=== PATIENT | male | born 1945 | race Caucasian/White ===

== ENCOUNTER 2018-01-31 17:43 | Observation (INO) | payer MEDICARE, MEDICAID ==
[2018-01-31 18:44] LABS: #Eosinphils 0.1 thou/uL (0.0-0.7); #Lymphocytes 1.3 thou/uL (1.20-3.40); #Monocytes 0.7 thou/uL (0.11-0.59); #Neutrophils 4.9 thou/uL (1.40-6.50); %Basophils 0.4 % (0.0-1.0); %Eosinophils 1.4 % (0.0-10.0); %Monocytes 10.4 % (0.0-10.0); %Neutrophils 69.7 % (42.0-75.0); Mean Corpuscular HGB CONC 32.6 g/dL (32.0-36.0); Mean Corpuscular Hemoglobin 30.7 pg (27.0-31.0); Mean Platelet Volume 9.1 fL (7.4-10.4); Platelet Count 186 thou/uL (130-400); RBC Distribution Width 15.6 % (11.5-14.5); Red Blood Cell (RBC) Count 3.58 mill/uL (4.70-6.10)
[2018-01-31 19:07] LABS: ALT (SGPT) 17 U/L (8-55); AST (SGOT) 21 U/L (5-34); Albumin 3.9 g/dL (3.4-4.8); Alkaline Phosphatase 160 U/L (40-150); Anion Gap 11 mmol/L (10-20); BUN (Urea Nitrogen) 25 mg/dL (8.4-25.7); Bilirubin, Total 0.5 mg/dL (0.2-1.2); CK (CPK) 32 U/L (30-200); Calc. Creatinine Clearance 0 mL/min (70-130); Calcium 9.6 mg/dL (7.8-10.44); Carbon Dioxide 32 mmol/L (23-31); Chloride 98 mmol/L (98-107); Estimated GFR-MDRD Greater than 90; Globulin 3.4 g/dL (2.4-3.5); Glucose 104 mg/dL (83-110); Lipase 66 U/L (8-78); Magnesium 1.5 mg/dL (1.6-2.6); Potassium 4.3 mmol/L (3.5-5.1); Protein, Total 7.3 g/dL (5.8-8.1); Sodium 137 mmol/L (136-145)
[2018-01-31 19:10] LABS: CKMB 1.4 ng/mL (0-6.6); Troponin I 0.048 ng/mL (< 0.028)
--- NOTE | 2018-01-31 19:22 | RAD ---
CHEST ONE VIEW: 01/31/18 HISTORY: Chest pain. FINDINGS: No comparison. The cardiac silhouette is magnified and enlarged. Pulmonary vasculature unremarkable. Mediastinum mid line with postoperative changes, aortic calcification, and a dual lead right subclavian cardiac elect ronic device. Right hemidiaphragm slightly elevated. No lobar consolidation or evidence of pneumothor ax. IMPRESSION: Cardiomegaly. No evidence of pulmonary edema. Atherosclerosis. POS: [facility]
--- NOTE | 2018-01-31 19:45 | CT ---
CT HEAD NONCONTRAST: 01/31/18 HISTORY: Altered mental status. FINDINGS: No comparison. There is no evidence of acute intracranial hemorrhage or infarct. Large area of enceph alomalacia involves the left frontal and temporal lobes in the distribution of the middle cerebral ar wilmar. No mass effect or shift of midline structures. Diffuse cortical atrophy. Visualized paranasal s inuses remain well aerated. IMPRESSION: Old left MCA infarct. No acute intracranial abnormalities are demonstrated. POS: [facility]
[2018-01-31] MEDS ORDERED: Acetaminophen 325 MG/10.15 ML UDCUP ONE (19:50)
--- NOTE | 2018-01-31 20:36 | CT ---
CT ARTERIOGRAM CHEST WITH IV CONTRAST AND 3D MIP IMAGIN01/31/18 HISTORY: Chest pain. FINDINGS: There is good contrast opacification of the pulmonary arteries and thoracic aorta with normal branchi ng of the great vessels. Prominent arterial calcification. Small amount of left pleural fluid. Emphys ematous changes at each lung apex. Degenerative changes throughout the spine. Elevation of the right hemidiaphragm without apparent cause. IMPRESSION: No CT evidence of pulmonary embolus. Atherosclerosis. Small left pleural effusion. COPD. POS: [facility]
[2018-01-31 22:19] LABS: Bilirubin Negative (Negative); Blood, Urine Negative (Negative); Clarity CLEAR (Clear); Glucose, Urine (Dipstick) Negative (Negative); Leukocyte Small (Negative); Nitrite Negative (Negative); Protein, Urine (Dipstick) Negative (Neg-Trace); Specific Gravity, Urine 1.016 (1.002-1.036); pH, Urine 6.5 (5.0-9.0)
[2018-01-31 22:21] LABS: Bacteria/HPF None Seen HPF (None Seen); Hyaline Casts/LPF 0-3 HYALINE CAST LPF (0-3 Hyaline); RBC/HPF 0-3 HPF (0-3); Squamous Epithelial 0-3 HPF (0-3); WBC/HPF 0-3 HPF (0-3)
[2018-01-31 22:23] LABS: Troponin I 0.056 ng/mL (< 0.028)
[2018-02-01] MEDS ORDERED: Sodium Chloride 0.45% 1,000 ML IV SCH (01:00)
[2018-02-01 02:53] VITALS: BMI 25.0
[2018-02-01 03:50] LABS: Troponin I 0.065 ng/mL (< 0.028)
[2018-02-01] MEDS ORDERED: Nitroglycerin 0.4 MG TAB (25 Tab Bottle) PO PRN (06:49)
[2018-02-01] MEDS ORDERED: Acetaminophen 325 MG TAB PO PRN (06:49)
[2018-02-01] MEDS ORDERED: Dextrose 5% in Water 1,000 ML IV PRN (06:54)
[2018-02-01] MEDS ORDERED: Dextrose 50% Abboject 50 ML SYRINGE SLOW IVP PRN (06:54)
[2018-02-01] MEDS ORDERED: Temazepam 15 MG CAP PO PRN (07:10)
[2018-02-01] MEDS ORDERED: Loratadine 10 MG TAB PO PRN (07:10)
[2018-02-01] MEDS ORDERED: Senokot S 8.6-50 MG TAB PO PRN (07:10)
[2018-02-01] MEDS ORDERED: Bisacodyl 5 MG TAB PO PRN (07:10)
[2018-02-01] MEDS ORDERED: Eucerin (Mineral Oil/Petrolatum,White) 30 gm Jar TOP PRN (07:10)
[2018-02-01] MEDS ORDERED: HYDROcodone/Acetaminophen 5/325 mg Tablet PO PRN (07:10)
[2018-02-01] MEDS ORDERED: Diabetic Tussin 200 MG/10 ML UDCUP PO PRN (07:10)
[2018-02-01] MEDS ORDERED: Ondansetron HCl/PF 4 MG/2 ML Vial IVP PRN (07:10)
[2018-02-01] MEDS ORDERED: hydrALAZINE 20 MG/ML VIAL SLOW IVP PRN (07:10)
[2018-02-01] MEDS ORDERED: Sodium Chloride 0.65% Nasal 44 ML BOT EA NARE PRN (07:10)
[2018-02-01] MEDS ORDERED: Calcium Carbonate 500 MG ChewTAB PO PRN (07:10)
[2018-02-01] MEDS ORDERED: Artificial Tears 18 DROP/0.9 ML EA EYE PRN (07:10)
[2018-02-01] MEDS ORDERED: Ondansetron ODT 4 MG TAB PO PRN (07:10)
[2018-02-01] MEDS ORDERED: diphenhydrAMINE 25 MG CAP PO PRN (07:28)
[2018-02-01] MEDS ORDERED: Magnesium Sulfate 3 GM in Sodium Chloride 0.9% 100 ML IVPB SCH (07:30)
--- NOTE | 2018-02-01 07:47 | HP ---
CHIEF COMPLAINT: Chest pain. HISTORY OF PRESENT ILLNESS: This is a 72-year-old male with past medical history of hyperkalemia, CVA, diabetes mellitus type 2, heart failure, hypertension, hyperlipidemia, MD, presenting with chest pain. Per the family, the patient was pointing to his chest because the patient is nonverbal and due to the patient points to the chest, patient was sent to be evaluated for possible heart attack. REVIEW OF SYSTEMS: Positive for chest pain, otherwise as documented in HPI. All other systems were reviewed and are negative. PAST MEDICAL HISTORY: Hyperkalemia, aphasia, atrial fibrillation, hyperlipidemia, hypertension, hemiplegia, heart failure, diabetes mellitus type 2, CVA with right-sided deficits. PAST SURGICAL HISTORY: Pacemaker. FAMILY HISTORY: Reviewed and noncontributory to this visit. PSYCHIATRIC HISTORY: Depression. SOCIAL HISTORY: Denies alcohol use, denies any drug use. Denies any smoking history. KNOWN ALLERGIES: No known drug allergies. CURRENT MEDICATIONS: Patient is taking, 1. Aspirin 81 mg. 2. Atorvastatin 80 mg. 3. Lantus, does not know the dose. 4. Bromocriptine. 5. Carvedilol 12.5 mg. 6. Digoxin 125 mcg. 7. Furosemide 40 mg. 8. Humulin. 9. Keppra 1000. 10. Lisinopril 2.5 mg. 11. Loperamide 2 mg. 12. Metformin 500 mg. 13. Metoclopramide 5 mg. 14. Warfarin 5 mg. 15. Zoloft 100 mg. PHYSICAL EXAMINATION: VITAL SIGNS: Blood pressure is 137/52, pulse is 82, respiratory rate of 48, temperature of 98.6, oxygen saturation of 100% on room air. GENERAL: The patient is nonverbal, lying in bed comfortably, does not appear to be in any distress. HEENT: Normocephalic, atraumatic. Pupils are equally round and reactive to light. Extraocular movements are intact. No scleral icterus. NECK: Trachea midline, no JVD. CARDIOVASCULAR: A 5/6 systolic murmur appreciated. ABDOMEN: Soft, nontender, nondistended, positive bowel sounds in all quadrants. No rigidity, no guarding. BACK: Normal back. EXTREMITIES: Upper extremity, 5/5 upper extremity strength and 5/5 lower extremity strength. No edema noted. The patient has right-sided weakness from previous cerebrovascular accident. NEUROLOGIC: The patient has a left-sided facial droop and right-sided weakness from previous stroke. PSYCHIATRIC: The patient is nonverbal, but able to follow commands. EKG shows sinus rhythm, rate of 87. LABORATORY DATA: WBC 7.2, hemoglobin 11.0, hematocrit 33.6, platelets 186. Sodium 137, potassium 4.3, chloride 98, carbon dioxide of 32, anion gap of 11, BUN is 25, creatinine is 0.81, glucose of 104, magnesium 1.5, alkaline phosphatase of 160. Troponin 0.048, 0.056. Lipase is 66. Urinalysis negative for nitrite and trace leukoesterase. IMAGING: CTA of the chest showed no CT evidence of pulmonary embolism. Brain CT showed old left MCA infarct, no acute intracranial abnormalities demonstrated. Chest x-ray shows cardiomegaly, no evidence of pulmonary edema. ASSESSMENT AND PLAN: This is a 72-year-old male being admitted for: 1. Chest pain, rule out acute coronary syndrome. At this point, troponins x2 has been increasing. We are going to diagnose the patient with non-ST elevation myocardial infarction. We have ordered echo to be followed up on it. We have consulted Cardiology. We will follow up with their recommendations. We will continue the patient on his home medication of aspirin, Coreg, atorvastatin. 2. History of hyperlipidemia. We will continue the patient on current medication. 3. Hypertension. We will continue the patient on current medication. 4. Diabetes mellitus type 2. We will continue sliding scale and patient's home dose of insulin. 5. Deep venous thrombosis and gastrointestinal prophylaxis. We will start the patient on Lovenox. RILEYD
[2018-02-01] MEDS ORDERED: Aspirin 325 MG TAB PO SCH (09:00)
[2018-02-01] MEDS ORDERED: INSULIN GLARGINE HUM REC ANLOG SQ SCH (09:00)
[2018-02-01] MEDS ORDERED: Prevnar 13-Val Conj/PF 0.5 ML SYRINGE IM ONE (09:00)
[2018-02-01] MEDS ORDERED: Metoprolol Tartrate 25 MG TAB PO SCH (09:00)
[2018-02-01] MEDS ORDERED: [UNRECOGNIZED DRUG - OTHER] SQ SCH (09:00)
--- NOTE | 2018-02-01 09:58 | PDOC.PN ---
- Subjective Encounter Start Date: 02/01/18 Encounter Start Time: 07:30 -: non-verbal he is able to node yes or no, denies chest pain, has headache - Objective Resuscitation Status: Resuscitation Status DNR:Do Not Resuscitate MAR Reviewed: Yes Vital Signs & Weight: Vital Signs (12 hours) Temp Pulse Resp BP BP Pulse Ox 02/01/18 08:00 95 02/01/18 07:09 97.9 F 71 16 149/69 H 93 L 02/01/18 03:50 97.2 F L 79 20 125/62 92 L 02/01/18 00:58 99.1 F 77 16 123/58 L 123/58 L 95 01/31/18 22:50 98.6 F 65 15 124/56 L 99 Weight Weight 189 lb 9.6 oz I&O: 01/31/18 02/01/18 02/02/18 06:59 06:59 06:59 Intake Total 700 Balance 700 Result Diagrams: 01/31/18 18:33 01/31/18 18:33 Additional Labs: Accuchecks 02/01/18 05:47 POC Glucose 106 Radiology Reviewed by me: Yes (CTA, chest xray) EKG Reviewed by me: Yes Phys Exam - Physical Examination Constitutional: NAD HEENT: PERRLA, moist MMs, sclera anicteric Neck: no JVD, supple Respiratory: no wheezing, no rales, no rhonchi Cardiovascular: RRR, no significant murmur, no rub Gastrointestinal: soft, non-tender, no distention, positive bowel sounds peg tube+ Musculoskeletal: no edema, pulses present right side weakness Psychiatric: normal affect Skin: no rash, normal turgor Dx/Plan (1) Chest pain Code(s): R07.9 - CHEST PAIN, UNSPECIFIED Status: Acute (2) Elevated troponin Code(s): R74.8 - ABNORMAL LEVELS OF OTHER SERUM ENZYMES Status: Acute (3) Hypomagnesemia Code(s): E83.42 - HYPOMAGNESEMIA Status: Acute (4) Anxiety and depression Code(s): F41.9 - ANXIETY DISORDER, UNSPECIFIED; F32.9 - MAJOR DEPRESSIVE DISORDER, SINGLE EPISODE, UNSPECIFIED Status: Chronic (5) Diabetes type 2, controlled Code(s): E11.9 - TYPE 2 DIABETES MELLITUS WITHOUT COMPLICATIONS Status: Chronic (6) Dyslipidemia Code(s): E78.5 - HYPERLIPIDEMIA, UNSPECIFIED Status: Chronic (7) H/O: CVA (cerebrovascular accident) Code(s): Z86.73 - PRSNL HX OF TIA (TIA), AND CEREB INFRC W/O RESID DEFICITS Status: Chronic (8) Hypertension Code(s): I10 - ESSENTIAL (PRIMARY) HYPERTENSION Status: Chronic (9) Seizure disorder Code(s): G40.909 - EPILEPSY, UNSP, NOT INTRACTABLE, WITHOUT STATUS EPILEPTICUS Status: Chronic - Plan cont current plan of care * cardiology has been consulted * pt is NPO, i will start gentle IVF as he is diabetic to prevent hypoglycemia * if no plan for any procedure, then will start tube feeding and at that point DC IVF * his home medication has been reconciled * medication reviewed as below * symptomatic treatment. Review of Systems - Review of Systems ENT: negative: Ear Pain, Ear Discharge, Nose Pain, Nose Discharge, Nose Congestion, Mouth Pain, Mouth Swelling, Throat Pain, Throat Swelling, Other Respiratory: negative: Cough, Dry, Shortness of Breath, Hemoptysis, SOB with Excertion, Pleuritic Pain, Sputum, Wheezing Cardiovascular: negative: chest pain, palpitations, orthopnea, paroxysmal nocturnal dyspnea, edema, light headedness, other Gastrointestinal: negative: Nausea, Vomiting, Abdominal Pain, Diarrhea, Constipation, Melena, Hematochezia, Other Genitourinary: negative: Dysuria, Frequency, Incontinence, Hematuria, Retention , Other Musculoskeletal: negative: Neck Pain, Shoulder Pain, Arm Pain, Back Pain, Hand Pain, Leg Pain, Foot Pain, Other Skin: negative: Rash, Lesions, Donell, Bruising, Other Neurological: Weakness, Change in Speech. negative: Numbness, Incoordination, Confusion, Seizures, Other - Medications/Allergies Allergies/Adverse Reactions: Allergies Allergy/AdvReac Type Severity Reaction Status Date / Time No Known Allergies Allergy Verified 02/01/18 02:49 Medications: Current Medications Acetaminophen (Tylenol) 650 mg PO Q4H PRN PRN Reason: Headache/Fever/Mild Pain (1-3) Hydrocodone Bitart/Acetaminophen ([place] 5/325) 1 tab PO Q4H PRN PRN Reason: Moderate Pain (4-6) Albuterol/Ipratropium (Duoneb) 3 ml NEB L2EX-AQ JARROD Artificial Tears (Tears Naturale) 2 drop EA EYE PRN PRN PRN Reason: Dry Eyes Aspirin (Ecotrin) 81 mg PO DAILY [facility] Atorvastatin Calcium (Lipitor) 80 mg PO HS [facility] Bisacodyl (Dulcolax) 10 mg PO DAILYPRN PRN PRN Reason: Constipation Calcium Carbonate (Tums) 1,000 mg PO Q4H PRN PRN Reason: Heartburn or Indigestion Carvedilol (Coreg) 12.5 mg PO BID [facility] Clopidogrel Bisulfate (Plavix) 75 mg PO QAM [facility] Cyanocobalamin (Vitamin B-12) 500 mcg PO DAILY [facility] Dextrose/Water (Dextrose 50%) 25 gm SLOW IVP PRN PRN PRN Reason: Hypoglycemia Digoxin (Lanoxin) 0.125 mg PO DAILY [facility] Diphenhydramine HCl (Benadryl) 25 mg PO Q6H PRN PRN Reason: Itching Enoxaparin Sodium (Lovenox) 90 mg SC 0900,2100 [facility] Famotidine (Pepcid) 20 mg PO BID [facility] Ferrous Sulfate (Feosol) 325 mg PO DAILY [facility] Furosemide (Lasix) 40 mg PO DAILY [facility] Glucagon (Glucagon) 1 mg IM PRN PRN PRN Reason: Hypoglycemia Guaifenesin (Robitussin Sf) 200 mg PO Q4H PRN PRN Reason: Cough Hydralazine HCl (Apresoline) 10 mg SLOW IVP Q4H PRN PRN Reason: SBP > 180 and HR < 70 Dextrose/Water (D5w) 1,000 mls @ 0 mls/hr IV .Q0M PRN PRN Reason: Hypoglycemia Magnesium Sulfate 3 gm/ Sodium (Chloride) 106 mls @ 100 mls/hr IVPB 0730 [facility] Stop: 02/01/18 12:00 Last Admin: 02/01/18 08:54 Dose: 106 mls Insulin Glargine 18 units/ (Miscellaneous Medication) 0.18 mls @ 0 mls/hr SC QAM [facility] Dextrose/Sodium Chloride (D5 0.9% Ns) 1,000 mls @ 50 mls/hr IV .Q20H [facility] Iron/Minerals/Multivitamins (Theragran M) 1 tab PO DAILY [facility] Levetiracetam (Keppra Oral Solution) 1,000 mg PO BID [facility] Lisinopril (Zestril) 2.5 mg PO DAILY JARROD Loratadine (Claritin) 10 mg PO DAILYPRN PRN PRN Reason: Sinus Symptoms Mineral Oil/White Petrolatum (Eucerin Cream) 0 gm TOP BIDPRN PRN PRN Reason: Dry Skin Nitroglycerin (Nitrostat) 0.4 mg PO Q5MIN PRN PRN Reason: Chest Pain Ondansetron HCl (Zofran Odt) 4 mg PO Q6H PRN PRN Reason: Nausea/Vomiting Ondansetron HCl (Zofran) 4 mg IVP Q6H PRN PRN Reason: Nausea/Vomiting Potassium Chloride (K-Dur) 20 meq PO DAILY JARROD Senna/Docusate Sodium (Senokot S) 2 tab PO BID PRN PRN Reason: Constipation Sertraline HCl (Zoloft) 100 mg PO DAILY JARROD Sodium Chloride (Flush - Normal Saline) 10 ml IVF Q12HR JARROD Sodium Chloride (Flush - Normal Saline) 10 ml IVF PRN PRN PRN Reason: Saline Flush Last Admin: 02/01/18 01:17 Dose: 10 ml Sodium Chloride ([place] Nasal [place] 0.65%) 0 ml EA NARE QIDPRN PRN PRN Reason: Nasal Congestion Temazepam (Restoril) 15 mg PO HSPRN PRN PRN Reason: Insomnia
[2018-02-01] MEDS: Lisinopril 2.5 MG TAB PO SCH (10:13)
[2018-02-01] MEDS: Potassium Chloride 20 MEQ TAB PO SCH (10:14)
[2018-02-01] MEDS: Digoxin 0.125 MG TAB PO SCH (10:14)
[2018-02-01] MEDS: Aspirin 81 mg Enteric Coated Tablet PO SCH (10:14)
[2018-02-01] MEDS: Famotidine 20 MG TAB PO SCH ×2 (10:14→21:37)
[2018-02-01] MEDS: Multivitamin W/ Minerals 1 TAB PO SCH (10:15)
[2018-02-01] MEDS: Cyanocobalamin (Vitamin B-12) 1,000 MCG TAB PO SCH (10:15)
[2018-02-01] MEDS: Ferrous Sulfate 325 MG TAB PO SCH (10:15)
[2018-02-01] MEDS: Carvedilol 6.25 MG TAB PO SCH ×2 (10:15→21:37)
[2018-02-01] MEDS: Enoxaparin Sodium 100 MG/ML SYRINGE SC SCH ×2 (10:16→21:37)
[2018-02-01] MEDS: Clopidogrel Bisulfate 75 MG TAB PO SCH (10:16)
[2018-02-01] MEDS: Furosemide 40 MG TAB PO SCH (10:16)
[2018-02-01] MEDS: levETIRAcetam 500 mg/5 ml Oral Solution PO SCH ×2 (10:17→21:37)
[2018-02-01] MEDS: Insulin Glargine 18 UNITS in Pre-Filled Syringe 1 EACH SC SCH ×2 (10:17→12:01)
[2018-02-01] MEDS: Dextrose 5 % And 0.9 % NaCl 1,000 ML IV SCH (12:02)
--- NOTE | 2018-02-01 14:35 | CON ---
DATE OF CONSULTATION: 02/01/2018 INDICATION FOR CONSULTATION: A 72-year-old gentleman who is status post CVA who is aphasic, who has a history of coronary artery disease, bypass surgery and AICD implanted and appears to have cardiomyo mariella. We were asked to see him due to an indeterminate cardiac enzymes and history of chest discomf ort. He is unable to give a true history. He cannot say whether he has pain or not, but was pointin g to his chest earlier. Apparently, when I spoke to the patient, he is denying any chest pain to me, but he is nonverbal, it is difficult to determine whether he is actually having pain or not. His ca rdiac enzymes are still indeterminate. His troponin I was 0.048 and it has increased up to 0.065. H is MBs are negative. His EKG does not show any acute changes to indicate ischemia. He has evidence of decreased R-wave progression in V1 through V4, which is most likely compatible with an old anterio r myocardial infarction which would be compatible with his severe decrease in left ventricular systol ic function by echocardiogram with ejection fraction of 10%-15% and the defibrillator. I cannot dete rmine whether or not he has had an aortic valve replacement, but on the echocardiogram, he does appea r to have at least moderate aortic valve stenosis. At this time, further history would be from the [facility] records. His review of systems otherwise I cannot obtain. PAST MEDICAL AND SURGICAL HISTORY: Noted for aphasia, CVA, history of heart failure in the past, zainab betes type 2. He has had right-sided hemiparesis, hyperlipidemia. He has had an AICD implanted. He has had bypass surgery. He has a history of depression. SOCIAL HISTORY: He has no history of alcohol or tobacco abuse according to the records. ALLERGIES: None. MEDICATIONS: It shows that he was taking aspirin, atorvastatin, insulin, bromocriptine, Coreg, digox in, furosemide, Humulin insulin, Keppra, lisinopril, loperamide, metformin, metoclopramide, warfarin, Zoloft. PHYSICAL EXAMINATION: GENERAL: Reveals an elderly, ill gentleman who is in no acute distress. He shakes his head yes or n o to questioning, but it is unclear as to whether or not he is truly understanding the questions. VITAL SIGNS: His blood pressure is 124/56, heart rate is 68 and shows occasional ventricular pacing. He appears to be in a sinus rhythm. I do not see any evidence of atrial fibrillation or other abno rmalities. Respiratory rate is 20, O2 saturation 94%. HEENT: Shows head to be normocephalic and atraumatic. Carotid pulses are present. There is some ra diation from the aortic area up into the carotids, but does not appear to be carotid bruits, most lik olaf it is from the aortic valve stenosis. CHEST: Clear to auscultation without any rales, rhonchi or wheezing. CARDIOVASCULAR: Exam reveals a regular rate and rhythm. There is no significant S3 or S4 noted, but heart sounds are somewhat distant. He has a well-healed midline surgical incision after median ster notomy. He also has a well healed surgical incision underneath the right infraclavicular area after an AICD implant, which was noted on the chest x-ray. ABDOMEN: Soft and nontender with positive bowel sounds. EXTREMITIES: Show no clubbing, cyanosis. He appears to be emaciated, very thin habitus. His legs a re very weak appearing, little muscle mass was left. He is unable to remove the right leg. Pedal pu lses are present. NEUROLOGIC: The patient had obvious CVA. He is unable to move anything on the right side. SKIN: Warm and dry. LABORATORY DATA AND IMAGING: Shows a creatinine of 0.81, potassium 4.3, blood sugar was 104. Hemogl obin is 11, WBC of 7.0. Troponin I as noted above. LDL was 82. MB is 1.4. Chest x-ray shows a sma ll left pleural effusion, evidence of previous bypass surgery with at least a median sternotomy. He does have a slight elevation of the right hemidiaphragm. He had a CT scan, which showed an old left middle cerebral artery infarct. Echocardiogram shows ejection fraction of 10%-15% with mild mitral a nd tricuspid valve regurgitation. The left atrium and right atrium are significantly dilated, left v entricle is significantly dilated. He has evidence of AICD leads noted in the right chambers. The a ortic valve is significantly sclerotic. The Doppler did not show any significant gradient; however, with the decreased cardiac output, I suspect the gradient is higher than what is estimated by the ech ocardiogram. EKG does not show any acute changes. He has occasional pacing. IMPRESSION: 1. 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 We will try to obtain e records to see whether or not he had any history of being here in this area, whether he was transfe rred. There is no family available. There were no records to indicate where he had his previous meka jamie done nor his previous history concerning possible cardiomyopathy. 2. History of chest pain. Enzymes are still indeterminate. We can continue to follow them, but he is not a candidate for intervention or repeat bypass surgery. We will treat him medically. 3. Diabetes has been dealt by the primary care service, appears to be relatively stable. 4. AICD implant. We will need to determine which device this is and determine when it was last inte rrogated. We will ask to see representatives to interrogate the device to see whether or not it is s till functional. It does appear to be pacing still and we can obviously interrogate to see whether o r not he has had any shocks. 5. Hypercholesterolemia. This appears to be very stable at this time. 6. History of cerebrovascular accident in the past. He does not have any new findings. He does hav e a history of seizure disorder. I cannot determine whether or not he has had any recent seizures. From a cardiac standpoint, there is no further workup that will be indicated at this time unless ther e are some new findings in this patient, but at this time, it is best to keep him comfortable. He de nies any symptoms at this time. Hopefully, if he remains stable, he can be transferred back to the [facility] tomorrow.
[2018-02-01] MEDS ORDERED: Atorvastatin Calcium 40 MG TAB PO SCH (21:00)
[2018-02-02 03:50] VITALS: TEMP 97.2
[2018-02-02 05:31] LABS: #Eosinphils 0.1 thou/uL (0.0-0.7); #Lymphocytes 1.9 thou/uL (1.20-3.40); #Monocytes 0.8 thou/uL (0.11-0.59); #Neutrophils 3.8 thou/uL (1.40-6.50); %Basophils 0.4 % (0.0-1.0); %Eosinophils 2.1 % (0.0-10.0); %Lymphocytes 28.2 % (21.0-51.0); %Neutrophils 57.3 % (42.0-75.0); Hemoglobin 9.9 g/dL (14.0-18.0); Mean Corpuscular HGB CONC 32.2 g/dL (32.0-36.0); Mean Corpuscular Hemoglobin 30.2 pg (27.0-31.0); Mean Corpuscular Volume 93.8 fL (78.0-98.0); Mean Platelet Volume 9.8 fL (7.4-10.4); Platelet Count 146 thou/uL (130-400); RBC Distribution Width 15.5 % (11.5-14.5); Red Blood Cell (RBC) Count 3.28 mill/uL (4.70-6.10); White Blood Cell (WBC) Count 6.6 thou/uL (4.8-10.8)
[2018-02-02 05:37] LABS: Anion Gap 10 mmol/L (10-20); BUN (Urea Nitrogen) 20 mg/dL (8.4-25.7); Calc. Creatinine Clearance 108 mL/min (70-130); Calcium 9.1 mg/dL (7.8-10.44); Carbon Dioxide 25 mmol/L (23-31); Chloride 104 mmol/L (98-107); Estimated GFR-MDRD Greater than 90; Glucose 95 mg/dL (83-110); Potassium 4.2 mmol/L (3.5-5.1); Sodium 135 mmol/L (136-145)
[2018-02-02] MEDS: Dextrose 5 % And 0.9 % NaCl 1,000 ML IV SCH (06:24)
[2018-02-02 08:05] VITALS: BP 135/62
[2018-02-02] MEDS: Insulin Glargine 18 UNITS in Pre-Filled Syringe 1 EACH SC SCH (08:59)
[2018-02-02] MEDS: Digoxin 0.125 MG TAB PO SCH (09:00)
[2018-02-02] MEDS: Enoxaparin Sodium 100 MG/ML SYRINGE SC SCH (09:00)
[2018-02-02] MEDS: levETIRAcetam 500 mg/5 ml Oral Solution PO SCH (09:00)
[2018-02-02] MEDS: Carvedilol 6.25 MG TAB PO SCH (09:00)
[2018-02-02] MEDS: Potassium Chloride 20 MEQ TAB PO SCH (09:01)
[2018-02-02] MEDS: Famotidine 20 MG TAB PO SCH (09:01)
[2018-02-02] MEDS: Aspirin 81 mg Enteric Coated Tablet PO SCH (09:01)
[2018-02-02] MEDS: Multivitamin W/ Minerals 1 TAB PO SCH (09:01)
[2018-02-02] MEDS: Cyanocobalamin (Vitamin B-12) 1,000 MCG TAB PO SCH (09:01)
[2018-02-02] MEDS: Ferrous Sulfate 325 MG TAB PO SCH (09:01)
[2018-02-02] MEDS: Lisinopril 2.5 MG TAB PO SCH (09:01)
[2018-02-02] MEDS: Furosemide 40 MG TAB PO SCH (09:01)
[2018-02-02] MEDS: Clopidogrel Bisulfate 75 MG TAB PO SCH (09:01)
--- NOTE | 2018-02-02 09:35 | DIS ---
DATE OF ADMISSION: 01/31/2018 DATE OF DISCHARGE: 02/02/2018 PRIMARY CARE PHYSICIAN: [facility] call admission. The patient admitted from [facility]. DISCHARGE DISPOSITION: nursing home home. PRIMARY DISCHARGE DIAGNOSES: 1. Elevated troponin, ruled out acute coronary syndrome. 2. Hypomagnesemia. 3. ? chest pain. SECONDARY DISCHARGE DIAGNOSES: Anxiety and depression, chronic systolic heart failure, stage C, card iomyopathy, diabetes type 2, dyslipidemia, history of cerebrovascular accident, oropharyngeal dysphag ia with PEG tube, hypertension, moderate aortic stenosis, seizure disorder. PRIMARY PROCEDURES AND OPERATIONS: None. RADIOLOGICAL INVESTIGATION: Chest x-ray normal. CT angio negative for PE. CT brain showed old stro ke with encephalomalacia. Echocardiography showed EF 15%-20% and moderate aortic stenosis. SIGNIFICANT LABORATORY DATA: WBC 6.6, hemoglobin 9.9, platelet 146. D-dimer 1.10. Sodium 135, pota ssium 4.2, BUN 20, creatinine 0.76, calcium 9.1, magnesium 2.1, troponin 0.065, LDL 82, AST and ALT a re normal. Urinalysis normal. DISCHARGE MEDICATIONS: Following our scheduled medication, DuoNeb q.6 hours, aspirin 81 mg daily, Li pitor 80 mg p.o. at bedtime, Coreg 12.5 mg p.o. b.i.d., vitamin B12 500 mcg p.o. daily, digoxin 125 m cg p.o. daily, ferrous sulfate 300 mg p.o. daily, Lasix 40 mg p.o. daily, Lantus insulin 18 units sub cutaneously b.i.d., Humulin R insulin as per sliding scale, Keppra 1000 mg p.o. b.i.d., lisinopril 2. 5 mg p.o. daily, metformin 500 mg p.o. b.i.d., Reglan 5 mg p.o. b.i.d., Ocuvite 1 capsule p.o. daily, potassium chloride 20 mEq p.o. daily, Senokot 1 tablet daily, Zoloft 100 mg daily, warfarin 5 mg alex ly, Zantac 150 mg daily. CONTRAINDICATIONS: None. CODE STATUS: DNR. INPATIENT CONSULTANTS: Dr. Kincaid was consulted while in hospital. TEST RESULTS PENDING ON DISCHARGE: None. ALLERGIES: No known drug allergy. DISCHARGE PLAN: Post hospital, the patient is instructed to follow with primary care physician and Alex Kincaid as instructed. HOSPITAL COURSE: The patient is a 72-year-old male who is nonverbal, who has a residual weakness fro m previous CVA, who lives at [facility]. From there, the patient was sent to ER for suspected ches t pain, rule out ACS. When he presented to ER, the patient was only able to nod yes or no to the question. He did not have any chest pain, but he was complaining of headache. In the emergency room, routine workup showed ch est x-ray normal. CT brain was negative for any acute intracranial process. He had elevated D-dimer and that is why CT angio was done, which was negative for any pulmonary embolism. His CT brain did show old stroke and encephalomalacia. He had routine blood test in the emergency room, which showed elevated troponin. He was observed on telemetry floor. We did serial cardiac enzyme. We consulted Cardiology. We did echocardiography, he has murmur and that is consistent with aortic stenosis murmu r. This patient found with EF 15% -20%, which is not new. He has AICD in place and he was on cardia c heart failure medication. He is currently euvolemic. He is on room air. Cardiology did not recommend any more investigation on him at this point. As patient is completely a symptomatic and that is why we decided to transfer him back to [facility]. court recording monitor remai shantel unremarkable. This patient will need outpatient follow up with Cardiology and pacemaker/AICD int errogation as an outpatient basis. PHYSICAL EXAMINATION: VITAL SIGNS: Currently, temperature 97.2, pulse 63, respiratory rate 16, saturation 100% on room air , blood pressure 135/62, weight 176 pounds. GENERAL: The patient is currently alert, awake, in no obvious acute distress. LUNGS: Clear to auscultation without any rhonchi. CARDIAC: S1, S2 appears regular. Systolic murmur present at second intercostal space on the right s dedra. ABDOMEN: Soft and benign. PEG tube in place. EXTREMITIES: No edema. NEUROLOGIC: The patient does have residual weakness on the right side and baseline aphasia. REVIEW OF SYSTEMS: Reviewed and negative. Paper work for discharge done. Discharge medication and reconciliation done.
== END 2018-02-02 10:17 ==
LOC: EDBD → ERS 17:43 → 2NO 23:46 → EDBD 23:46
PROVIDERS: ADMIT Internal Medicine; ATTEND Internal Medicine
DX: R07.89 Other chest pain (principal); I69.320 Aphasia following cerebral infarction; I69.351 Hemiplegia and hemiparesis following cerebral infarction affecting right dominant side; I11.0 Hypertensive heart disease with heart failure; I50.22 Chronic systolic (congestive) heart failure; E11.9 Type 2 diabetes mellitus without complications; I25.2 Old myocardial infarction; E78.5 Hyperlipidemia, unspecified; F32.9 Major depressive disorder, single episode, unspecified; R74.8 Abnormal levels of other serum enzymes; G40.909 Epilepsy, unspecified, not intractable, without status epilepticus; I35.0 Nonrheumatic aortic (valve) stenosis; Z79.82 Long term (current) use of aspirin; Z79.4 Long term (current) use of insulin; Z79.01 Long term (current) use of anticoagulants; Z79.899 Other long term (current) drug therapy; Z95.1 Presence of aortocoronary bypass graft; Z95.0 Presence of cardiac pacemaker; Z66 Do not resuscitate
CPT/HCPCS: 51701; 70450; 71045; 71275; 80048; 80053; 80061; 82550; 82553; 82962 ×2; 83690; 83735 ×2; 84484 ×4; 85025 ×2; 85379; 93005; 93306; 94640 ×3; 94760 ×2; 96361; 96372 ×2; 96374; 97139; 99285; G0378 ×2; 36415; 36416; 81003; 81015; 90471; 90662; 90670; G0008; G0009; J1650; J2270; J3475; J7050; J7620

== ENCOUNTER 2018-02-05 21:47 | Emergency (ER) | payer MEDICARE, MEDICAID ==
--- NOTE | 2018-02-05 23:42 | RAD ---
AP ABDOMINAL RADIOGRAPH 02/05/18 HISTORY: Evaluate PEG tube placement. Gastrostomy tube dislodged. FINDINGS: AP view of the abdomen is obtained after injection of contrast within the gastrostomy tube. Contrast is seen within the stomach without findings to suggest extravasation of contrast. Tip of the gastrost janie tube overlies the gastric fundus. Bowel gas pattern is nonspecific. Median sternotomy wires and A ICD leads are seen. IMPRESSION: Gastrostomy tube in place with tip overlying the gastric fundus and contrast seen within the confines of the stomach. POS: [facility]
== END 2018-02-06 01:26 | disposition home or self-care (01) ==
LOC: ERS 21:47 → EDBD 21:47 → ERS 02-06 01:26
DX: Z43.1 Encounter for attention to gastrostomy (principal); I10 Essential (primary) hypertension; E87.5 Hyperkalemia; I48.91 Unspecified atrial fibrillation; E78.5 Hyperlipidemia, unspecified; E11.9 Type 2 diabetes mellitus without complications; I25.2 Old myocardial infarction; F32.9 Major depressive disorder, single episode, unspecified; Z79.01 Long term (current) use of anticoagulants; Z86.73 Personal history of transient ischemic attack (TIA), and cerebral infarction without residual deficits; Z79.82 Long term (current) use of aspirin; Z79.899 Other long term (current) drug therapy
CPT/HCPCS: 43760; 74018; B4087

== ENCOUNTER 2018-06-07 21:36 | Inpatient (IN) | payer MEDICARE, MEDICAID ==
[2018-06-07 22:27] LABS: #Lymphocytes 1.5 thou/uL (1.20-3.40); #Monocytes 0.6 thou/uL (0.11-0.59); #Neutrophils 11.4 thou/uL (1.40-6.50); %Basophils 0.1 % (0.0-1.0); %Eosinophils 0.2 % (0.0-10.0); %Lymphocytes 11.1 % (21.0-51.0); %Monocytes 4.6 % (0.0-10.0); Hemoglobin 10.2 g/dL (14.0-18.0); Mean Corpuscular HGB CONC 31.9 g/dL (32.0-36.0); Mean Corpuscular Hemoglobin 31.6 pg (27.0-31.0); Platelet Count 274 thou/uL (130-400); RBC Distribution Width 14.6 % (11.5-14.5); Red Blood Cell (RBC) Count 3.22 mill/uL (4.70-6.10); White Blood Cell (WBC) Count 13.6 thou/uL (4.8-10.8)
--- NOTE | 2018-06-07 22:42 | RAD ---
CHEST ONE VIEW: 06/07/18 HISTORY: Tachypnea. COMPARISON: Radiograph 01/31/18. FINDINGS: Heart size is enlarged. Enlarging bilateral effusions. No pneumothorax. Cardiac device appears similar. No acute osseous abnormality. IMPRESSION: Enlarging bilateral pleural effusions. POS: [facility]
[2018-06-07 22:45] LABS: Bilirubin Negative (Negative); Blood, Urine Negative (Negative); Clarity CLOUDY (Clear); Glucose, Urine (Dipstick) Negative (Negative); Leukocyte Negative (Negative); Nitrite Negative (Negative); Protein, Urine (Dipstick) 30 mg/dL (Neg-Trace); Specific Gravity, Urine 1.018 (1.002-1.036)
[2018-06-07 22:47] LABS: Bacteria/HPF None Seen HPF (None Seen); Squamous Epithelial 0-3 HPF (0-3); WBC/HPF 0-3 HPF (0-3)
[2018-06-07 22:49] LABS: ALT (SGPT) 172 U/L (8-55); AST (SGOT) 260 U/L (5-34); Albumin 3.5 g/dL (3.4-4.8); Alkaline Phosphatase 131 U/L (40-150); Anion Gap 21 mmol/L (10-20); BUN (Urea Nitrogen) 60 mg/dL (8.4-25.7); Bilirubin, Total 0.5 mg/dL (0.2-1.2); Calc. Creatinine Clearance 0 mL/min (70-130); Calcium 9.3 mg/dL (7.8-10.44); Carbon Dioxide 22 mmol/L (23-31); Chloride 98 mmol/L (98-107); Estimated GFR-MDRD 61; Globulin 3.6 g/dL (2.4-3.5); Glucose 100 mg/dL (83-110); Magnesium 1.7 mg/dL (1.6-2.6); Potassium 4.9 mmol/L (3.5-5.1); Protein, Total 7.1 g/dL (5.8-8.1); Sodium 136 mmol/L (136-145)
[2018-06-07 22:58] LABS: Pathc Cast-AUWi Flag 16.42 (0-2.49)
[2018-06-07 23:06] LABS: RBC/HPF 0-3 HPF (0-3)
[2018-06-07] MEDS ORDERED: Sodium Chloride 0.9% 100 ML ONE (23:07)
[2018-06-07] MEDS ORDERED: Piperacillin/Tazobactam 4.5 GM VIAL ONE (23:07)
[2018-06-07] MEDS ORDERED: Furosemide 40 MG/4 ML VIAL ONE (23:07)
[2018-06-07] MEDS ORDERED: Aspirin Chewable 81 MG TAB ONE (23:07)
[2018-06-07 23:09] LABS: Crystals/HPF RARE CA OXALATE HPF (Negative)
[2018-06-07 23:17] LABS: CKMB 108.5 ng/mL (0-6.6)
[2018-06-07 23:37] LABS: Actual Bicarbonate (HCO3a) 23.7 mEq/L (22-28); Analyzer IN Cardio ER; Base Excess (BEa) -0.3 mEq/L (-2.0 to +3.0); Calcium, Ionized 1.14 mmol/L (1.12-1.30); Carboxyhemoglobin (COHb) 0.3 gm% (0.0-3.0); Hemoglobin (Hb) 9.8 g/dL (14.0-18.0); O2 Tension (PaO2) 69.3 mmHg (> 70.0); Potassium - ABG Lab 4.53 mmol/L (3.70-5.30); pH, Arterial 7.44 (7.35-7.45)
[2018-06-07 23:39] LABS: Puncture Site LRA
[2018-06-07] MEDS ORDERED: Enoxaparin Sodium 80 MG/0.8 ML SYRINGE ONE (23:39)
--- NOTE | 2018-06-08 00:14 | PDOC.FPRHP ---
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 Per the ER physician EMS measured his O2 sats to be in the high 80s to low 90s on RA so he was put on NC. In addition, the patient was given 400mL of NS by EMS. On arrival to the ED his sats were up to 95% on 4L NC but due to persistent increased work of breathing he was transitioned to BiPAP. A CXR revealed He was given IV vancomycin & zosyn due to concern for possible sepsis as well given his elevated WBC & lactic acid. Lastly, the patient was determined to be having an NSTEMI as his initial troponin level was 37. He was therefore given therapeutic lovenox and ASA per the recs of cardiology. - Allergies/Adverse Reactions Allergies Allergy/AdvReac Type Severity Reaction Status Date / Time No Known Allergies Allergy Verified 06/08/18 01:49 - Home Medications Medication Instructions Recorded Confirmed Type Acetaminophen [Tylenol] 325 mg PER TUBE Q6H PRN 02/01/18 06/08/18 History Aspirin [Ecotrin Low Strength] 81 mg PER TUBE DAILY 02/01/18 06/08/18 History Atorvastatin Calcium [Lipitor] 80 mg PER TUBE HS 02/01/18 06/08/18 History Carvedilol [Coreg] 12.5 mg PO BID 02/01/18 06/08/18 History Cyanocobalamin (Vitamin B-12) 500 mcg PER TUBE DAILY 02/01/18 06/08/18 History [B-12] Digoxin 125 mcg PER TUBE DAILY 02/01/18 06/08/18 History Ferrous Sulfate [Ferosul] 300 mg PER TUBE DAILY 02/01/18 06/08/18 History Furosemide [Lasix] 40 mg PER TUBE DAILY 02/01/18 06/08/18 History Insulin Glargine,Hum.Rec.Anlog 18 unit SQ HS 02/01/18 06/08/18 History [Lantus] Insulin Regular [HumuLIN R Vial] 0 unit SC ASDIR 02/01/18 06/08/18 History Ipratropium/Albuterol Sulfate 3 ml NEB Q6HR PRN 02/01/18 06/08/18 History [DuoNeb] Lisinopril [Zestril] 2.5 mg PER TUBE DAILY 02/01/18 06/08/18 History Loperamide HCl [Loperamide] 2 mg PO Q4HR PRN 02/01/18 06/08/18 History Metoclopramide HCl 5 mg PER TUBE BID 02/01/18 06/08/18 History Multivit-Min/FA/Lycopen/Lutein 1 each PER TUBE DAILY 02/01/18 06/08/18 History [Centrum Silver Tablet] Potassium Chloride 20 meq PER TUBE DAILY 02/01/18 06/08/18 History Sennosides [Senokot] 1 tab PER TUBE DAILY 02/01/18 06/08/18 History Sertraline HCl [Zoloft] 100 mg PER TUBE DAILY 02/01/18 06/08/18 History Zantac 150 mg PER TUBE DAILY 02/01/18 06/08/18 History diphenhydrAMINE HCl 25 mg PO Q6H PRN 02/01/18 06/08/18 History [Diphenhydramine HCl] levETIRAcetam [Keppra Oral 1,000 mg PER TUBE BID 02/01/18 06/08/18 History Solution] metFORMIN HCl [Metformin HCl] 500 mg PER TUBE BID 02/01/18 06/08/18 History Acetaminophen 650 mg PER TUBE Q4H PRN 06/08/18 06/08/18 History Bromocriptine Mesylate 2.5 mg PER TUBE QAM-WM 06/08/18 06/08/18 History Nystatin [Nystatin Powder] 1 applic TOP PRN PRN 06/08/18 06/08/18 History Protein Hydrolysate,Milk [Liquid 30 ml PER TUBE BID 06/08/18 06/08/18 History Protein Fortifier] Warfarin Sodium 4 mg PER TUBE DAILY 06/08/18 06/08/18 History - History PMHx: HFrEF, DMII, seizure disorder, HTN, h/o CVA w/ aphasia & r-sided deficits , h/o DE PSHx: pacemaker & PEG tube placement FHx: Parents & siblings w/ CVA Social: No EtOH, tobacco, or drug use. - Review of Systems ROS unobtainable: other - Vital signs BP: 97/55 HR: 76 RR: 45 Tmax: 97.5F Pox: 98% on BiPAP Wt: 78 kg - Physical Exam Constitutional: NAD, other (frail appearing but alert and able to nod yes or no to questions) HEENT: normocephalic and atraumatic, grossly normal vision, grossly normal hearing Neck: supple, FROM Heart: RRR, normal S1/S2, no murmurs/rubs/gallops, pulses present, no edema Lungs: CTAB, other (on BiPAP w/ tachypnea) Abdomen: soft, non-tender, bowel sounds present Musculoskeletal: normal structure, other (R-sided hemiplegia) Neurological: other (aphasic w/ R-sided hemiplegia) Skin: no rash/lesions, good turgor Heme/Lymphatic: no unusual bruising or bleeding, no purpura, no petechia Psychiatric: other (unable to assess 2/2 aphasia) FMR H&P: Results - Labs Result Diagrams: 06/08/18 03:38 06/08/18 03:38 Lab results: WBC 13.6 thou/uL (4.8-10.8) H 06/07/18 22:08 Hgb 10.2 g/dL (14.0-18.0) L 06/07/18 22:08 Hct 31.9 % (42.0-52.0) L 06/07/18 22:08 MCV 99.0 fL (78.0-98.0) H 06/07/18 22:08 Plt Count 274 thou/uL (130-400) 06/07/18 22:08 Neutrophils % 84.0 % (42.0-75.0) H 06/07/18 22:08 ABG pH 7.44 (7.35-7.45) 06/07/18 23:25 ABG pCO2 36.0 mmHg (35.0-45.0) 06/07/18 23:25 ABG pO2 69.3 mmHg (> 70.0) 06/07/18 23:25 Sodium 136 mmol/L (136-145) 06/07/18 22:08 Potassium 4.9 mmol/L (3.5-5.1) 06/07/18 22:08 Chloride 98 mmol/L (98-107) 06/07/18 22:08 Carbon Dioxide 22 mmol/L (23-31) L 06/07/18 22:08 BUN 60 mg/dL (8.4-25.7) H 06/07/18 22:08 Creatinine 1.17 mg/dL (0.7-1.3) 06/07/18 22:08 Glucose 100 mg/dL (83-110) 06/07/18 22:08 Lactic Acid 4.2 mmol/L (0.5-2.2) H* 06/07/18 22:16 Calcium 9.3 mg/dL (7.8-10.44) 06/07/18 22:08 Total Bilirubin 0.5 mg/dL (0.2-1.2) 06/07/18 22:08 AST 260 U/L (5-34) H 06/07/18 22:08 ALT 172 U/L (8-55) H 06/07/18 22:08 Alkaline Phosphatase 131 U/L (40-150) 06/07/18 22:08 CK-MB (CK-2) 108.5 ng/mL (0-6.6) H* 06/07/18 22:16 B-Natriuretic Peptide 3000.1 pg/mL (0-100) H 06/07/18 22:14 Serum Total Protein 7.1 g/dL (5.8-8.1) 06/07/18 22:08 Albumin 3.5 g/dL (3.4-4.8) 06/07/18 22:08 Urine Ketones Negative mg/dL (Negative) 06/07/18 22:10 Urine Blood Negative (Negative) 06/07/18 22:10 Urine Nitrite Negative (Negative) 06/07/18 22:10 Ur Leukocyte Esterase Negative (Negative) 06/07/18 22:10 Urine RBC 0-3 HPF (0-3) 06/07/18 22:10 Urine WBC 0-3 HPF (0-3) 06/07/18 22:10 Ur Squamous Epith Cells 0-3 HPF (0-3) 06/07/18 22:10 Urine Bacteria None Seen HPF (None Seen) 06/07/18 22:10 - Radiology Interpretation Chest x-ray Status: report reviewed by me (enlarging B/L pleural effusions) FMR H&P: A/P - Problem List (1) NSTEMI (non-ST elevated myocardial infarction) Current Visit: Yes Status: Acute Code(s): I21.4 - NON-ST ELEVATION (NSTEMI) MYOCARDIAL INFARCTION (2) ABDIRAHMAN (acute kidney injury) Current Visit: Yes Status: Acute Code(s): N17.9 - ACUTE KIDNEY FAILURE, UNSPECIFIED (3) Elevated troponin Current Visit: No Status: Acute Code(s): R74.8 - ABNORMAL LEVELS OF OTHER SERUM ENZYMES (4) Chronic systolic heart failure, ACC/AHA stage C Current Visit: No Status: Chronic Code(s): I50.22 - CHRONIC SYSTOLIC ( CONGESTIVE) HEART FAILURE (5) Diabetes type 2, controlled Current Visit: No Status: Chronic Code(s): E11.9 - TYPE 2 DIABETES MELLITUS WITHOUT COMPLICATIONS (6) Dyslipidemia Current Visit: No Status: Chronic Code(s): E78.5 - HYPERLIPIDEMIA, UNSPECIFIED (7) H/O: CVA (cerebrovascular accident) Current Visit: No Status: Chronic Code(s): Z86.73 - PRSNL HX OF TIA (TIA), AND CEREB INFRC W/O RESID DEFICITS (8) Hypertension Current Visit: No Status: Chronic Code(s): I10 - ESSENTIAL (PRIMARY) HYPERTENSION (9) Seizure disorder Current Visit: No Status: Chronic Code(s): G40.909 - EPILEPSY, UNSP, NOT INTRACTABLE, WITHOUT STATUS EPILEPTICUS - Plan Acute hypoxic respiratory failure. - Likely secondary to acutely decompensated heart failure/NSTEMI. CXR showed bilateral pleural effusions. s/p 80mg lasix in the ED. - Will admit to IMCU on BIPAP for respiratory support & wean as tolerated. NSTEMI - Trop elevated at 37 on presentation. s/p therapeutic lovenox in ED. - Will continue to trend cardiac enzymes. - Cardiology consulted from ED and recommended diuresis before any interventions. - Will continue ASA & statin. Will hold beta kristy. Acute decompensated heart failure with reduced EF & dilated cardiomyopathy - EF of 15-20% in 01/2018. - CXR showed effusions & patient hypoxic. No significant LE edema but BNP was elevated at 3,000. - Will obtain a repeat echo & continue w/ diuresis. - Will consider inotropy with Dobutamine if pt becomes hypotensive with MAPs < 65 or with signs of organ damage. Leukocytosis - Could be 2/2 stress from NSTEMI but infectious workup also pending including blood & urine cultures. Will continue IV abx until all infectious sources ruled out. Lactic acidosis - Could be 2/2 infection but could also be 2/2 cardiogenic shock from NSTEMI & CHF exacerbation. - Infection workup pending as described above. - Will consdier adding an inotropic agent to improve perfusion if lactic acid does not decrease with diuresis. Diabetes mellitus - Will resume home meds - ACHS accuchecks & hypoglycemia protocol. Hypertension - Patient hypotensive in the ED. Will hold antihypertensives. Iron deficiency anemia - Will continue iron supplementation. History of CVA - Aware. Patient aphasic with residual left sided hemiplegia at baseline. Receives meds and food per PEG. Seizure disorder: - Will resume home meds. FMR H&P: Upper Level - Pertinent history Johnnie Sanchez is a 72 year old male with a history of CAD/CAB withh AICD and CVAx 2 who presents to the ED from [facility] [place] due to hypoxia and dyspnea He has a history of dilated cardiomyopathy with EF 15-20% from recent hospitalization in January 2018. Pt is aphasic at baseline. In EMS he received 400 mL NS and was placed on 3L NC. In the ED, pt continue to be tachypneic on nasal cannula so BiPAP was initiated. He also received Vanc and Zosyn due to concern for possible sepsis due to white count and elevated lactate. - Pertinent findings Vitals: BP - 97/55 P: 76 RR: 45 O2: 98% on BiPAP Exam: General: alert and responsive. Moderate respiratory distress. Heart: regular rate and rhythm Lungs: clear to auscultation bilaterally. Increased work of breathing. On BiPAP Abdomen: soft, non-tender Extremities: no peripheral edema. Neuro: CN II-XII intact grossly; left-sided residual motor deficits Labs and imaging as described above. - Plan Date/Time: 06/08/18 0014 [place], have evaluated this patient and agree with findings/plan as outlined by public health internship resident. Pertinent changes/additions are listed here. Acute hypoxic respiratory failure. -likely secondary to acute decompensated heart failure/NSTEMI with bilateral pleural effusions - will admit to IMCU for BIPAP. Wean as tolerated. NSTEMI - received therapeutic lovenox in ED. - will continue to trend cardiac enzymes. - cardiology has been consulted from ED and is aware of patient. Recommended diuresis of patient before any interventions. - ASA, statin. Hold beta kristy. Acute decompensated heart failure with reduced EF with dilated cardiomyopathy - EF of 15-20% in 01/2018. - will obtain echo. - will consider inotropy with Dobutamine if pt becomes hypotensive with MAPs < 65 or with organ damage. - will diurese Leukocytosis -infecious workup pending Lactic acidosis - likely from infection vs. cardiogenic shock - infection workup pending. -will possibly add inotropic agent if lactic acid does not decrease with diuresis. Diabetes mellitus - resume home meds - AC/HS accuchecks. Hypertension - hold antihypertensives for hypertension Iron deficiency anemia - continue iron supplementation History of CVA - aphasic with residual left sided weakness at baseline. Receives meds and food per PEG. Addendum - Attending - Attending Attestation Date/Time: 06/08/18 0200 I personally evaluated the patient and discussed the management with Dr. Kelly/ Maxi. I agree with the History, Examination, Assessment and Plan documented above with any addition or exceptions noted below. Patient with history of previous CVA, HFrEF, bedbound status, and aphasia here with increased shortness of breath and hypoxia. He appears to be in CHF exacerbation based on labs and imaging. He also is having at minimum an NSTEMI but Cardiology has reviewed the case and will see patient this morning. He is on therapeutic lovenox for now and will closely monitor vital signs. No major evidence of infection at this point but has been covered with broad spectrum abx. Continue BIPAP through the morning, but family appears to be headed towards more comfort measures if no invasive cardiac procedures would be beneficial, which is unlikely. Patient is DNAR status.
[2018-06-08 02:11] VITALS: BP 100/53
[2018-06-08] MEDS ORDERED: Dextrose 50% Abboject 50 ML SYRINGE SLOW IVP PRN (03:53)
[2018-06-08] MEDS ORDERED: Dextrose 5% in Water 1,000 ML IV PRN (03:53)
[2018-06-08] MEDS ORDERED: HumaLOG 300 UNITS/3 ML VIAL SC PRN ×2 (03:53)
[2018-06-08] MEDS ORDERED: DOBUTamine 500 mg/250 ml 250 ML IVPB SCH ×2 (04:00→12:30)
[2018-06-08 04:13] LABS: #Lymphocytes 2.4 thou/uL (1.20-3.40); #Monocytes 0.9 thou/uL (0.11-0.59); #Neutrophils 9.5 thou/uL (1.40-6.50); %Basophils 0.3 % (0.0-1.0); %Eosinophils 0.2 % (0.0-10.0); %Lymphocytes 18.5 % (21.0-51.0); %Monocytes 7.2 % (0.0-10.0); %Neutrophils 73.8 % (42.0-75.0); Hemoglobin 9.5 g/dL (14.0-18.0); Mean Corpuscular HGB CONC 32.2 g/dL (32.0-36.0); Mean Corpuscular Hemoglobin 31.6 pg (27.0-31.0); Mean Platelet Volume 9.2 fL (7.4-10.4); Platelet Count 247 thou/uL (130-400); RBC Distribution Width 14.7 % (11.5-14.5); White Blood Cell (WBC) Count 12.9 thou/uL (4.8-10.8)
[2018-06-08 04:33] LABS: ALT (SGPT) 159 U/L (8-55); AST (SGOT) 250 U/L (5-34); Albumin 3.2 g/dL (3.4-4.8); Alkaline Phosphatase 101 U/L (40-150); Anion Gap 12 mmol/L (10-20); BUN (Urea Nitrogen) 64 mg/dL (8.4-25.7); Bilirubin, Total 0.4 mg/dL (0.2-1.2); Calc. Creatinine Clearance 66 mL/min (70-130); Calcium 9.1 mg/dL (7.8-10.44); Carbon Dioxide 29 mmol/L (23-31); Chloride 96 mmol/L (98-107); Estimated GFR-MDRD 64; Globulin 3.3 g/dL (2.4-3.5); Glucose 113 mg/dL (83-110); Potassium 4.1 mmol/L (3.5-5.1); Protein, Total 6.5 g/dL (5.8-8.1); Sodium 133 mmol/L (136-145)
[2018-06-08 05:20] LABS: CKMB 90.7 ng/mL (0-6.6); Critical Call CKMB RESULT DECREASING
[2018-06-08] MEDS: Furosemide 40 MG/4 ML VIAL SLOW IVP SCH ×2 (06:11→14:20)
[2018-06-08] MEDS: Piperacillin/Tazobactam 4.5 GM in Sodium Chloride 0.9% 100 ML IVPB SCH ×3 (06:11→17:50)
--- NOTE | 2018-06-08 06:48 | PDOC.EVN ---
Event Note - Event Note Event Note: Patient denies CP or shortness of breath this morning, indicates he is more comfortable than last night Low tidal volume on BiPAP, increased RR Family indicates he had a stroke six years ago and has been unable to talk or move since that time Family indicates they have not talked to palliative care before They would like to hear from Cardiology about prognosis, they are aware there is a good stance patient is a poor candidate for cath, if Cardiology believes cath would be possible and beneficial they would do it. They are aware he is moving towards end of life and would like to talk to palliative care and hospice about what those options look like. They indicate they have not talked with palliative care or hospice before. Pending Cardiology eval they would be interested in hospice.
[2018-06-08 08:04] LABS: Critical Call Chem Troponin I RESULT DECREASING
[2018-06-08 08:26] LABS: CKMB 63.5 ng/mL (0-6.6); Critical Call CKMB RESULT DECREASING
--- NOTE | 2018-06-08 08:31 | PDOC.EVN ---
Event Note - Event Note Event Note: Patient has another chart under birthdate 01/18/1946 There is more past visits under the [birth year]18 birthdate charts will need to be merged, anticipate this will have to happen Sunday as Medical records will not be available during the weekend
[2018-06-08] MEDS: Enoxaparin Sodium 80 MG/0.8 ML SYRINGE SC SCH ×2 (08:58→20:20)
[2018-06-08] MEDS ORDERED: Vancomycin HCl 750 MG in Sodium Chloride 0.9% 250 ML 250 ML IVPB SCH (10:00)
--- NOTE | 2018-06-08 11:13 | CON ---
DATE OF CONSULTATION: CONSULTING PHYSICIAN: [facility]. REASON FOR CONSULTATION: Acute respiratory failure. The following encompassed 70 minutes time, of that time, greater than 50% spent with the patient and/or the patient's unit in the hospital. Also, I had extensive discussion with the patient's daughter at bedside. HISTORY OF PRESENT ILLNESS: The patient is a 72-year-old male residential patient, who had a stroke about 6 years ago and has been profoundly compromised from that. He came in yesterday with hypoxemia and shortness of breath. He was found to have a profoundly elevated troponin. He was found to have an elevated BNP and evidence of pulmonary edema and systolic heart failure on his x-ray. He was placed on BiPAP. He apparently has a standing do not attempt resuscitation order, which continues to be in place. He cannot communicate secondary to an expressive aphasia. PAST MEDICAL HISTORY: 1. Systolic heart failure. 2. Diabetes mellitus type 2. 3. Seizure disorder. 4. Hypertension. 5. History of stroke. 6. History of myocardial infarction. PAST SURGICAL HISTORY: 1. Pacemaker placement. 2. PEG tube placement. 3. It appears he has had some type of sternotomy in the past. FAMILY MEDICAL HISTORY: Remarkable for stroke. SOCIAL HISTORY: Nonsmoker. Does not consume alcohol. Does not use illicit drugs. MEDICATIONS PRIOR TO ADMISSION: These are listed on the chart and include: 1. Reglan. 2. DuoNeb. 3. Lantus insulin. 4. Metformin. 5. Lipitor. 6. Coreg. 7. Keppra. 8. Zantac. 9. Senokot. 10. Centrum Silver. 11. Vitamin B12. 12. Lisinopril. 13. Iron sulfate. 14. Digoxin. 15. Sertraline. 16. Nystatin. 17. Warfarin. 18. Acetaminophen. 19. Loperamide. 20. Humulin R insulin. 21. Tylenol. 22. Protein. 23. Furosemide. 24. Aspirin. REVIEW OF SYSTEMS: Cannot be obtained secondary to the patient's aphasia. PHYSICAL EXAMINATION: VITAL SIGNS: Temperature 97.8, pulse 80, blood pressure 105/53, O2 saturation 100%, respiratory rate 36. He is currently on BiPAP. He is tachypneic. HEENT: Pupils are reactive. Sclerae anicteric. Oropharynx clear. NECK: No adenopathy or JVD. LUNGS: Coarse breath sounds bilaterally. CARDIOVASCULAR: S1, S2. Regular. ABDOMEN: Soft, nontender. PEG tube noted in the mid epigastric region. EXTREMITIES: No clubbing or cyanosis. Severe muscle wasting. NEUROLOGICAL: Hard to determine because he will not move to command. LABORATORY DATA: Sodium 133, potassium 4.1, chloride 96, CO2 of 29, BUN of 64 and creatinine 1.1, glucose 113, troponin 39.7 after initially being 53. White blood cell count 12.9, hematocrit 29.4, and platelet count 247. BNP level was 3000. His chest x-ray shows bilateral pulmonary edema and effusions, pacemaker in the right chest. He has sternotomy wires. ASSESSMENT: 1. Myocardial infarction. 2. Severe debilitation secondary to previous stroke. 3. Acute on chronic systolic heart failure. 4. Acute hypoxic respiratory failure requiring noninvasive mechanical ventilation. 5. Standing do not attempt resuscitation order. PLAN: 1. The patient is currently being managed with IV diuretics and BiPAP. He is on anticoagulation with Lovenox. I do not believe he is going to do well even with cardiac intervention. I would agree with pursuing palliative course on this patient. 2. I am not sure the antibiotics necessarily needed as I doubt this is pneumonia. 3. We will be happy to follow with you. Job ID: [id number]
--- NOTE | 2018-06-08 12:49 | CON ---
DATE OF CONSULTATION: 06/08/2018 REASON FOR CONSULTATION: Heart failure. HISTORY OF PRESENT ILLNESS: Mr. Nelson is a pleasant 72-year-old white gentleman, who comes to the hospital for shortness of breath. He has history of end-stage heart failure. He has an EF of 15% to 20%, CABG in the past and AICD placement. He was seen by Dr. Kincaid here in January of last year. At that time, his troponin was only at 0.7. At this time, he comes in with difficulty breathing. He was found to have an elevated BNP and pulmonary edema, so he was given IV Lasix, placed on a BiPAP. He is DNR/DNI, so does not wish intubation. He has expressive aphasia, so he cannot communicate at all. He had a troponin checked, which was elevated, so Cardiology is being consulted for all these things. Currently, he is on BiPAP, breathing comfortably. PAST MEDICAL HISTORY: 1. History of chronic systolic heart failure. 2. Ischemic cardiomyopathy. 3. Type 2 diabetes. 4. Seizure disorder. 5. Hypertension. 6. CVA in the past with expressive aphasia, unable to communicate. 7. History of NV. PAST SURGICAL HISTORY: 1. AICD placement. 2. PEG tube placement. 3. CABG. FAMILY HISTORY: CVA. SOCIAL HISTORY: No alcohol, tobacco, or drugs per chart review. OUTPATIENT MEDICATIONS: Include: 1. Metoclopramide. 2. Duonebs. 3. Lantus. 4. Metformin. 5. Lipitor 80 mg at bedtime. 6. Coreg 12.5 b.i.d. 7. Keppra 1000 b.i.d. 8. Zantac. 9. Senokot. 10. Multivitamin. 11. Vitamin B12. 12. Potassium chloride 20 mEq a day. 13. Lisinopril 2.5 a day. 14. Ferrous sulfate. 15. Digoxin 125 mcg a day. 16. Bromocriptine. 17. Sertraline. 18. Nystatin powder. 19. Warfarin 4 mg a day. 20. Tylenol p.r.n. 21. Loperamide. 22. Diphenhydramine. 23. Insulin regular. 24. Tylenol p.r.n. 25. Liquid protein 45. 26. Lasix 40 mg a day. 27. Aspirin 81 a day. ALLERGIES: NO KNOWN DRUG ALLERGIES. REVIEW OF SYSTEMS: Unobtainable as the patient is nonverbal. PHYSICAL EXAMINATION: VITAL SIGNS: Temperature 97.8, pulse 75, respiratory rate 24, saturating 100% on 50% FiO2, and blood pressure 108/62. GENERAL: Awake, sleeping, but easily arousable, nonverbal. HEENT: Normocephalic and atraumatic. NECK: Supple. LUNGS: Have coarse breath sounds bilaterally with crackles. ABDOMEN: Soft. Positive bowel sounds. CARDIOVASCULAR: S1 and S2. No S3 or S4. No murmurs. Distant heart sounds. EXTREMITIES: 1+ edema. SKIN: Warm and dry. LABORATORY DATA: Laboratory work was reviewed. White count of 13, hemoglobin of 10, hematocrit 31, platelet count 274. Coags, ABG were reviewed. Chemistries were reviewed. Troponin was 37, then up to 39, up to 53 and down again to 39. CK-MB of 63. Albumin of 3.2. UA unremarkable. Influenza was negative, both A and B. EKG was reviewed. Thus, most recent echo was done in January 2018, which showed an EF of 15% to 20%. ASSESSMENT: 1. [id number] myocardial infarction. 2. Severe ischemic cardiomyopathy. 3. Acute on chronic systolic heart failure. 4. Dilated cardiomyopathy. PLAN: 1. Most likely, he had a cardiac event that precipitated his exacerbation of heart failure. 2. I spoke with the family about how to proceed, how aggressive they want to be with this care. tells me he has been on long-term bed for the last 5 years without being able to talk. He would not want to have any invasive interventions done. They will do only medications for now, which I think is appropriate. 3. We will do Lovenox full dose b.i.d. for the next 48 hours. 4. We will repeat echocardiogram. 5. Continue home medications once blood pressure allows. 6. We will follow. Job ID: [id number]
[2018-06-08] MEDS: Morphine 2 MG/ML SYRINGE SLOW IVP PRN (17:35)
[2018-06-09] MEDS: Piperacillin/Tazobactam 4.5 GM in Sodium Chloride 0.9% 100 ML IVPB SCH ×2 (00:41→05:35)
[2018-06-09 05:32] VITALS: BMI 22.8
[2018-06-09] MEDS: Furosemide 40 MG/4 ML VIAL SLOW IVP SCH (05:35)
[2018-06-09 05:59] LABS: ALT (SGPT) 142 U/L (8-55); AST (SGOT) 157 U/L (5-34); Albumin 2.9 g/dL (3.4-4.8); Alkaline Phosphatase 79 U/L (40-150); Anion Gap 15 mmol/L (10-20); BUN (Urea Nitrogen) 62 mg/dL (8.4-25.7); Bilirubin, Total 0.4 mg/dL (0.2-1.2); Calc. Creatinine Clearance 72 mL/min (70-130); Calcium 8.7 mg/dL (7.8-10.44); Carbon Dioxide 29 mmol/L (23-31); Chloride 103 mmol/L (98-107); Estimated GFR-MDRD 70; Globulin 2.9 g/dL (2.4-3.5); Glucose 85 mg/dL (83-110); Potassium 3.1 mmol/L (3.5-5.1); Protein, Total 5.8 g/dL (5.8-8.1); Sodium 144 mmol/L (136-145)
[2018-06-09 06:25] VITALS: TEMP 97.2
--- NOTE | 2018-06-09 06:29 | PDOC.FM ---
- Subjective Subjective: AICD went off one time yesterday afternoon. None overnight. This AM patient requested to be taken off Bipap and is satting in the high 90s. He denies shortness of breath, cough or chest pain at this time. Patient and family assert that they would like to go to hospice, comfort cares at this time. They would prefer to go to inpatient hospice at [facility] as opposed to returning to [facility]. - Objective Vital Signs & Weight: Vital Signs (12 hours) Temp Resp Pulse Ox 06/09/18 06:24 97.2 F L 06/09/18 00:04 99.1 F 06/08/18 22:38 30 H 06/08/18 20:00 100 06/08/18 19:24 99.2 F Weight Weight 78.426 kg Most Recent Monitor Data Heart Rate from ECG 78 NIBP 96/46 NIBP BP-Mean 62 Respiration from ECG 19 SpO2 100 I&O: 06/07/18 06/08/18 06/09/18 06:59 06:59 06:59 Intake Total 130 492 Output Total 350 1870 Balance -220 -1378 Result Diagrams: 06/08/18 03:38 06/09/18 04:42 Phys Exam - Physical Examination Constitutional: NAD HEENT: PERRLA, moist MMs mild diminished breath sounds, mild crackles bilaterally improved from yesterday Cardiovascular: no rub irregularly irregular, 3/6 murmur Gastrointestinal: soft, non-tender, no distention, positive bowel sounds Musculoskeletal: pulses present chronic R sided weakness Psychiatric: normal affect Skin: no rash, cap refill <2 seconds Dx/Plan (1) ABDIRAHMAN (acute kidney injury) Code(s): N17.9 - ACUTE KIDNEY FAILURE, UNSPECIFIED Status: Acute (2) NSTEMI (non-ST elevated myocardial infarction) Code(s): I21.4 - NON-ST ELEVATION (NSTEMI) MYOCARDIAL INFARCTION Status: Acute (3) Cardiomyopathy Code(s): I42.9 - CARDIOMYOPATHY, UNSPECIFIED Status: Chronic (4) Diabetes type 2, controlled Code(s): E11.9 - TYPE 2 DIABETES MELLITUS WITHOUT COMPLICATIONS Status: Chronic (5) H/O: CVA (cerebrovascular accident) Code(s): Z86.73 - PRSNL HX OF TIA (TIA), AND CEREB INFRC W/O RESID DEFICITS Status: Chronic (6) Hypertension Code(s): I10 - ESSENTIAL (PRIMARY) HYPERTENSION Status: Chronic (7) Moderate aortic stenosis Code(s): I35.0 - NONRHEUMATIC AORTIC (VALVE) STENOSIS Status: Chronic (8) Seizure disorder Code(s): G40.909 - EPILEPSY, UNSP, NOT INTRACTABLE, WITHOUT STATUS EPILEPTICUS Status: Chronic - Plan Plan: This is a 72 yo M admitted for NSTEMI now desiring to setup hospice care. 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 Hold beta kristy. # Acute decompensated heart failure with reduced EF with dilated cardiomyopathy - EF of 15-20% in 01/2018. - will avoid dobutamine, may have precipitated AICD going off # Leukocytosis -afebrile overnight - bcx shows contaminant in 04/17, ucx negative - will stop abx # Acute hypoxic respiratory failure -likely secondary to acute decompensated heart failure/NSTEMI, now improved -NC this AM # Lactic acidosis - resolved # Diabetes mellitus - AC/HS accuchecks. # History of CVA w/ R hemiplegia 6 years ago. - aphasic with residual left sided weakness at baseline. Receives meds and food per PEG. Addendum - Attending - Attending Attestation Date/Time: 06/09/18 [id number] I personally evaluated the patient and discussed the management with Dr. Degroot. I agree with the History, Examination, Assessment and Plan documented above with any addition or exceptions noted below. Patient here for fluid overload and NSTEMI and is opting for hospice services rather than aggressive treatment. He has been on Bipap overnight, but currently off for comfort measures and sats are normal on NC. He has diuresed well. Will continue to work on coordination of hospice services with patient and family. Anticipate suspending lab draws and most IV medications other than those needed for comfort in the near future.
[2018-06-09] MEDS: Morphine 2 MG/ML SYRINGE SLOW IVP PRN (06:52)
--- NOTE | 2018-06-09 07:42 | PDOC.EVN ---
Event Note - Event Note Event Note: Called [facility] per family request They state they will send staff to evaluate
[2018-06-09] MEDS: Enoxaparin Sodium 80 MG/0.8 ML SYRINGE SC SCH (09:22)
--- NOTE | 2018-06-09 10:00 | PRG ---
DATE OF SERVICE: 06/09/2018 SUBJECTIVE: The patient is off the BiPAP, looks comfortable. Family is requesting defibrillator would be turned off. OBJECTIVE: VITAL SIGNS: Temperature 97.2, pulse 70, and blood pressure 96/46. HEENT: Unremarkable. NECK: No JVD. CHEST: Clear. CARDIAC: S1 and S2 irregular. ABDOMEN: Soft. EXTREMITIES: No edema. LABORATORY DATA: Sodium 144, potassium 3.1, BUN 60, creatinine 1.0, and glucose 85. ASSESSMENT: 1. Myocardial infarction. 2. Congestive heart failure. PLAN: Family was requested the fibrillator would be turned off. They are comfortable with palliative care. DNR orders on the chart. No further recommendations at this time. Job ID: [id number]
--- NOTE | 2018-06-09 12:51 | PDOC.CTH ---
Cardiology Progress Note - Subjective No new issues. Did not tolerate Dobutamine yesterday. He developed several pVC' s and even VT and had an AICD shock delivered. - Objective Vital Signs Temp Pulse Ox 06/09/18 07:10 100 06/09/18 06:24 97.2 F L Weight 172 lb 14.4 oz 06/08/18 06/09/18 06/10/18 06:59 06:59 06:59 Intake Total 130 492 Output Total 350 1870 Balance -220 -1378 - Physical Examination General/Neuro: NAD Neck: no JVD present Lungs: unlabored respirations Heart: RRR Abdomen: NT/ND Extremities: other: (no edema) - Telemetry Telemetry Rhythm: NSR - Labs Result Diagrams: 06/08/18 03:38 06/09/18 04:42 Troponin/CKMB CK-MB (CK-2) 63.5 ng/mL (0-6.6) H* 06/08/18 07:15 Troponin I 39.794 ng/mL (< 0.028) H* 06/08/18 07:15 - Assessment/Plan 1. NSTEMI 2. LBBB 3. Severe ischemic CM 4. VT 5. S/P AICD. PLAN: - Family wants to withdraw care. - I think this is reasonable as he has no quality of life. - During our conversation daughter asked him if he was ready to go to [facility] and he nodded yes. - I will have his AICD stop all therapies but keep pacing capability per family' s request. - They have decided to get him into [facility] [place]. - Would replace Sis
--- NOTE | 2018-06-09 16:27 | DIS ---
DATE OF ADMISSION: 06/08/2018 DATE OF DISCHARGE: 06/09/2018 RESIDENT: Josiah Degroot MD ADMITTING ATTENDING: Miguelito Conn MD DISCHARGE ATTENDING: Miguelito Conn MD. CONSULTS: Cardiology, Pulmonology, and Palliative Care. PROCEDURES: None. PRIMARY DIAGNOSIS: Jyg-SO-binibhp elevation myocardial infarction. SECONDARY DIAGNOSES: 1. History of cerebrovascular accident. 2. Right-sided hemiplegia. 3. History of coronary artery bypass grafting. 4. Acute hypoxic respiratory failure. 5. Lactic acidosis. 6. Diabetes mellitus. DISCHARGE MEDICATIONS: 1. Morphine. 2. Ativan, per Hospice Team. DISCHARGE MEDICATIONS: None. DISCONTINUED MEDICATIONS: All medications not related to comfort cares. HISTORY OF PRESENT ILLNESS AND HOSPITAL COURSE: This is a 72-year-old gentleman who was admitted to the hospital with chief complaint of chest pain. This has been going on for 2 to 3 days and came in for evaluation. Troponin was found to be 37. There was no acute STEMI on the EKG. Troponins up to 54. Per consultation with Cardiology Team, determined that he was not a good candidate for catheterization. He spent the night on BiPAP and did improve over the course of the night with Lasix diuresis. Ultimately, the decision was made with the family to send the patient to hospice with comfort cares. On date of discharge, the patient was breathing comfortably on 2 L nasal cannula, saturating 100% on 2 L. Daughters, Jocelyne and Sanjuana are at the bedside along with the , Wen. The family decided on [facility] for their hospice agency. DISPOSITION: Stable, short life expectancy. DISCHARGE INSTRUCTIONS: 1. Location: Inpatient hospice. 2. Diet: Comfort feeds. 3. Activity: As tolerated. 4. Follow up with [facility]. Job ID: [id number]
--- NOTE | 2018-06-12 14:27 | PQF ---
JUANITA RODAS RYAN *r [id number] IMCU- [id number] CLINICAL DOCUMENTATION IMPROVEMENT CLARIFICATION FORM: ICD-10 Updated PLEASE DO AN ADDENDUM TO THE PROGRESS NOTE WITH ANY DOCUMENTATION UPDATES OR ADDITIONS AND CARRY THROUGH TO DC SUMMARY. THANK YOU. DATE: 06-12-18 ATTN: DR. TRAY FREED / DR. CAMDEN LOMAS Please exercise your independent, professional judgment in responding to the clarification form. Clinical indicators are provided on the bottom of this form for your review Please check appropriate box(s): [ x ] Cardiogenic Shock [ ] Lactic Acidosis without shock [ ] Other diagnosis [ ] Unable to determine For continuity of documentation, please document condition throughout progress notes and discharge summary. Thank You. CLINICAL INDICATORS - SIGNS / SYMPTOMS / LABS 2-23 H&P (RAJNI): * LACTIC ACIDOSIS COULD BE 2/2 INFECTION BUT COULD ALSO BE 2/2 CARDIOGENIC SHOCK FROM NSTEMI AND CHF EXAC APHASIC AT BASELINE (ANTONETTE): NOT SURE THE ANTIBIOTICS NECESSARILY NEEDED I DOUBT THIS IS PNA 2-24 (LOURDES): LEUKOCYTOSIS - BCX SHOWS CONTAMINANT IN 1/2, UCX NEGATIVE - WILL STOP ABX RISK FACTORS 2-23 H&P (RAJNI): * NSTEMI * ACUTE ON CHRONIC SYSTOLIC CHF * LEUKOCYTOSIS TREATMENTS: CPOE: ADMIT TO IMCU 2-23 H&P (RAJNI): * ED 80MG IV LASIX * IMCU ON BIPAP * CARDIO CONSULT * OBTAIN REPEAT ECHO * BLD CULTURES AND URINE CULTURE * IV ABX UNTIL ALL INFECTIOUS SOURCES RULED OUT THANK YOU, MADDIE (This form is maintained as a part of the permanent medical record) 2014 [employer]. All Rights Reserved Maddie Green RN, BS [email or web address] [facility]
== END 2018-06-09 17:00 | disposition hospice, inpatient (51) | DRG 280 ==
LOC: ERS 21:36 → IMCU/EMU 06-08 01:39
PROVIDERS: ADMIT Student in an Organized Health Care Education/Training Program; ATTEND Student in an Organized Health Care Education/Training Program
PROC: 5A09357 Assistance with Respiratory Ventilation, Less than 24 Consecutive Hours, Continuous Positive Airway Pressure (ICD-10-PCS; principal; 2018-06-08)
DX: I21.4 Non-ST elevation (NSTEMI) myocardial infarction (principal); J96.01 Acute respiratory failure with hypoxia; I69.351 Hemiplegia and hemiparesis following cerebral infarction affecting right dominant side; I50.22 Chronic systolic (congestive) heart failure; N17.9 Acute kidney failure, unspecified; Z66 Do not resuscitate; Z51.5 Encounter for palliative care; I47.2 Ventricular tachycardia; E87.2 Acidosis; I69.320 Aphasia following cerebral infarction; E11.9 Type 2 diabetes mellitus without complications; I11.0 Hypertensive heart disease with heart failure; G40.909 Epilepsy, unspecified, not intractable, without status epilepticus; E78.5 Hyperlipidemia, unspecified; I44.7 Left bundle-branch block, unspecified; I25.5 Ischemic cardiomyopathy; I35.0 Nonrheumatic aortic (valve) stenosis; I25.2 Old myocardial infarction; Z95.0 Presence of cardiac pacemaker; Z93.1 Gastrostomy status; Z79.4 Long term (current) use of insulin; Z79.82 Long term (current) use of aspirin; Z88.8 Allergy status to other drugs, medicaments and biological substances; Z95.1 Presence of aortocoronary bypass graft
CPT/HCPCS: 36415; 36416; 71045; 80053; 81003; 81015; 82553; 82805; 83605; 83735; 83880; 84443; 84484; 85025; 85520; 87040; 87086; 87149; 87804; 93005; 93306; 94760; J1250; J1650; J1940; J2270; J2543; J3370; J7050